=== PATIENT | male | born 1995 | race Caucasian/White ===

== ENCOUNTER 2017-01-20 13:21 | Outpatient (CLI) | payer BC ==
[2017-01-20] MEDS ORDERED: CEFTRIAXONE 1 G VIAL IM ONE (15:30)
[2017-01-20 15:37] LABS: BASOPHILS % (AUTO) 0.1 % (0.0-2.0); HEMATOCRIT 48 % (39-51); HEMOGLOBIN 15.3 g/dL (13.5-17.5); LYMPHOCYTES # (AUTO) 1.3 /CMM (0.8-4.8); LYMPHOCYTES % (AUTO) 9.2 % (20.0-44.0); MEAN CORPUSCULAR HEMOGLOBIN 26 PG (26.0-33.0); MEAN CORPUSCULAR HGB CONC 32 g/dl (31.0-36.0); MEAN CORPUSCULAR VOLUME 82 fL (80-96); MONOCYTES # (AUTO) 1.4 /CMM (0.1-1.30); MONOCYTES % (AUTO) 9.7 % (2.0-12.0); NEUTROPHILS # (AUTO) 11.6 /CMM (1.8-8.9); PLATELET COUNT (AUTO) 340 /CMM (150-450); RDW COEFFICIENT OF VARIATION 18.6 (11.5-15.0); RED BLOOD CELL COUNT(AUTO) 5.87 MIL/uL (4.5-6.0); WHITE BLOOD COUNT (AUTO) 14.4 K/uL (4.3-11.0)
== END 2017-01-20 23:59 | disposition home or self-care (01) ==
LOC: WOU 13:21
PROVIDERS: ATTEND Specialist
DX: L89.893 Pressure ulcer of other site, stage 3 (principal); L03.116 Cellulitis of left lower limb; Z88.2 Allergy status to sulfonamides; Z87.891 Personal history of nicotine dependence; Z87.81 Personal history of (healed) traumatic fracture; L97.529 Non-pressure chronic ulcer of other part of left foot with unspecified severity
CPT/HCPCS: 11042; 36415; 73630-TC; 85025-TC; 85652-TC; 86140-TC; 87070-TC; 87075-TC; 96372; A6209; A6402; J0696